=== PATIENT | female | born 1980 | race Asian ===

== ENCOUNTER → 2019-06-20 07:41 | Outpatient (CLI) | payer OTHER, SELFPAY ==
--- NOTE | 2019-06-20 | DI.US.S_ITS ---
PROCEDURE: US PELVIC COMPLETE INDICATIONS: LLQ PAIN, HISTORY OF OVARIAN CYSTS TECHNIQUE: Real-time scanning was performed of the pelvic organs, with image documentation. Additional endovaginal scanning was necessary due to incomplete visualization of the adnexal and endometrial structures by transabdominal scanning. COMPARISON: None. FINDINGS: Transabdominal scanning: Limited scanning through the kidneys shows no hydronephrosis. No pathologic free abdominal or pelvic fluid. Posterior intramural fibroid measuring 9 mm. Posterior subserosal fibroid measuring 17 mm. Endovaginal scanning: Uterus: Uterus is normal in size at 5.3 x 2.1 x 4.1 cm. The endometrium measures 3.0 mm in combined thickness. Ovaries: Ovaries are normal bilaterally. Bilateral follicular cyst present. No adnexal masses. IMPRESSION: 1. 2 fibroids, largest measuring 17 mm. 2. Bilateral follicular cysts. Dictated by: Hussein Montez [facility] Interpreted: Joanne Shannon MD on 06/20/2019 at 10:41 Approved by: Joanne Shannon MD, PhD on 06/20/2019 at 16:19
--- NOTE | 2019-06-20 | DI.US.S_ITS ---
PROCEDURE: US ABDOMEN COMPLETE INDICATIONS: LLQ PAIN, HISTORY OF OVARIAN CYSTS TECHNIQUE: Real-time scanning was performed of the abdominal and retroperitoneal organs, with image documentation. COMPARISON: [facility], US, US PELVIC COMPLETE, 06/20/2019, 8:13. FINDINGS: Liver: Liver is diffusely increased in echogenicity. No focal hepatic abnormalities identified. Normal hepatic size. Gallbladder: No gallstones identified. Normal gallbladder wall. No pericholecystic fluid. Negative sonographic Blue sign. Biliary ducts: Intrahepatic bile ducts are non-dilated. Extrahepatic bile duct caliber measures 2.0 mm. Normal is 6-7 mm or less in diameter, or 10 mm or less post-cholecystectomy. Pancreas: Visualized portions of the pancreas are sonographically normal. Spleen: Spleen is normal in size and homogeneous in echotexture. Kidneys: Kidneys are normal in size and echotexture. Right kidney measures 11.0 cm long; left kidney measures 10.6 cm long. No hydronephrosis or nephrolithiasis. No solid masses. Aorta: Visualized aorta is normal in caliber at less than 3 cm. Iliacs: Proximal common iliac arteries are normal in caliber at less than 2.5 cm. IVC: Intrahepatic inferior vena cava is patent. Miscellaneous: No free abdominal fluid. IMPRESSION: 1. Increased hepatic echogenicity noted possibly related to hepatic steatosis but other sources of hepatocellular disease including hepatic cirrhosis cannot be excluded. Recommend clinical correlation. 2. No source for left lower quadrant pain identified. If pain persists, consider CT. Dictated by: Hussein JIMENES Interpreted: Joanne Shannon MD on 06/20/2019 at 10:53 Approved by: Joanne Shannon MD, PhD on 06/20/2019 at 16:20
== END ==
PROVIDERS: Family Provider Internal Medicine; PCP Internal Medicine; Referring Provider Internal Medicine; Visit Provider Internal Medicine
DX: R10.32 Left lower quadrant pain (principal); D25.1 Intramural leiomyoma of uterus; D25.2 Subserosal leiomyoma of uterus; N83.02 Follicular cyst of left ovary; N83.01 Follicular cyst of right ovary
CPT/HCPCS: 76700; 76830; 76856

== ENCOUNTER → 2019-06-23 11:23 | Outpatient (CLI) | payer OTHER, SELFPAY ==
--- NOTE | 2019-06-23 12:04 | DI.CT.S_ITS ---
PROCEDURE: CT ABDOMEN PELVIS W CON INDICATIONS: Left lower quadrant pain TECHNIQUE: After the administration of oral and intravenous contrast, 5 mm thick sections acquired from the diaphragms to the symphysis. 5 mm thick coronal and sagittal reformats were performed. For radiation dose reduction, the following was used: automated exposure control, adjustment of mA and/or kV according to patient size. COMPARISON: None. FINDINGS: Image quality: Excellent. ABDOMEN: Lung bases: Lung bases are clear. Heart size is normal. Solid organs: Liver is enlarged with steatosis. Gallbladder is unremarkable. Biliary system is non-dilated. Pancreas enhances normally. Spleen is normal in size and enhancement. Splenule is noted. No adrenal nodules. Kidneys are normal in size and enhancement, without hydronephrosis. Peritoneum and bowel: Stomach, small bowel, and colon loops are normal in caliber and wall thickness. No free fluid or air. Colonic diverticula are present without associated inflammatory change. Nodes and vessels: No retroperitoneal or mesenteric adenopathy. Aorta and inferior vena cava are normal in caliber. Miscellaneous: No ventral hernias. PELVIS: Genitourinary: Bladder wall thickness is normal. Miscellaneous: No inguinal hernias or adenopathy. Bones: No suspicious bony lesions. No vertebral body compression fractures. IMPRESSION: 1. Mild diverticulosis. No visualized inflammatory change. 2. Mild hepatomegaly with steatosis. Dictated by: Susan Kc M.D. on 06/23/2019 at 17:45 Approved by: Susan Kc M.D. on 06/23/2019 at 17:47
== END ==
PROVIDERS: Family Provider Internal Medicine; PCP Internal Medicine; Referring Provider Internal Medicine; Visit Provider Internal Medicine
DX: R10.32 Left lower quadrant pain (principal); K57.90 Diverticulosis of intestine, part unspecified, without perforation or abscess without bleeding; K76.0 Fatty (change of) liver, not elsewhere classified
CPT/HCPCS: 74177

== ENCOUNTER → 2021-01-08 15:40 | Outpatient (CLI) | payer OTHER, SELFPAY ==
--- NOTE | 2021-01-08 | DI.MG.S_ITS ---
BILATERAL DIGITAL SCREENING MAMMOGRAM 3D/2D WITH CAD: 01/08/2021 CLINICAL: Routine screening. Baseline. No prior exams were available for comparison. The tissue of both breasts is heterogeneously dense. This may lower the sensitivity of mammography. Current study was also evaluated with a Computer Aided Detection (CAD) system. No significant masses, calcifications, or other findings are seen in either breast. IMPRESSION: NEGATIVE There is no mammographic evidence of malignancy. A 1 year screening mammogram is recommended. This exam was interpreted at Station ID: [id number]. NOTE: For mammograms, a report in lay terms will be sent to the patient. Approximately 15% of breast malignancies will not be visualized mammographically. In the management of a palpable breast mass, a negative mammogram must not discourage biopsy of a clinically suspicious lesion. Electronically Signed By: Kimberly alcaraz/mary:01/08/2021 17:19:52 letter sent: Normal Exam ACR BI-RADS Category 1: Negative 3341F
== END ==
PROVIDERS: Family Provider Internal Medicine; PCP Internal Medicine; Referring Provider Internal Medicine; Visit Provider Internal Medicine
DX: Z12.31 Encounter for screening mammogram for malignant neoplasm of breast (principal)
CPT/HCPCS: 77063; 77067

== ENCOUNTER → 2022-01-09 14:02 | Outpatient (CLI) | payer OTHER, SELFPAY ==
--- NOTE | 2022-01-09 | DI.MG.S_ITS ---
BILATERAL DIGITAL SCREENING MAMMOGRAM 3D/2D WITH CAD: 01/09/2022 CLINICAL: Routine screening. Comparison is made to exam dated: 01/08/2021 mammogram - [facility]. Both breasts are heterogeneously dense, which may obscure small masses (category c / 51-75% glandular tissue). Current study was also evaluated with a Computer Aided Detection (CAD) system. No significant masses, calcifications, or other findings are seen in either breast. There has been no significant interval change. IMPRESSION: NEGATIVE There is no mammographic evidence of malignancy. A 1 year screening mammogram is recommended. Based on the Tyrer Cuzick model (a risk assessment model) the patient's lifetime risk is 14.4% and her 10 year risk is 2.2%. According to the ACR, ACS, and NCCN guidelines, an annual breast MRI exam along with mammogram is recommended if the patient's lifetime risk is 20% or greater. This exam was interpreted at Station ID: [id number]. NOTE: For mammograms, a report in lay terms will be sent to the patient. Approximately 15% of breast malignancies will not be visualized mammographically. In the management of a palpable breast mass, a negative mammogram must not discourage biopsy of a clinically suspicious lesion. Electronically Signed By: hCuck giron/mary:01/12/2022 11:36:53 letter sent: Normal Exam ACR BI-RADS Category 1: Negative 3341F
== END ==
PROVIDERS: Family Provider Internal Medicine; PCP Internal Medicine; Referring Provider Internal Medicine; Visit Provider Internal Medicine
DX: Z12.31 Encounter for screening mammogram for malignant neoplasm of breast (principal)
CPT/HCPCS: 77063; 77067

== ENCOUNTER → 2022-06-10 13:42 | Outpatient (CLI) | payer OTHER, SELFPAY ==
--- NOTE | 2022-06-15 16:49 | DIET.CONS ---
Dietary Consultation Note Consult Date: 06/10/22 41 y/o F referred to RD for pre-diabetes and hyperlipidemia.? Pt is struggling with how to navigate diet with multiple comorbidities. A1c: 6.3 (H, pre-diabetic)? FB (WNL) LDL: 148 (H) Cholesterol: 219 (H) BMI: 26 Wt: 158 lbs / 70.9 kg Mother has high cholesterol and father has adult-onset diabetes. PA: Has been trying to do more exercise, which has not helped wt. 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 Injured knee yrs ago. Exercises 4-5x/week using rowing machine (24 min moderate) and/or bicycle (40-45 min), core and squats. Cannot run or walk for too long due to knee injury. Wt hx: wt increased after quitting active job.? Diet recall:? Wake: 9am B: veggie omelet or soft-boiled eggs (2 eggs), whole wheat sourdough with butter and jam, and hash brown OR steal cut oatmeal OR grits (cream, no cheese) with saut? veggies (onion, zucchini, tomato). Black tea unsweetened. No longer drinks coffee daily.? S: no snack since increasing breakfast meal size. L: leftover OR sheela sandwich D: (6-7pm) canned ravi soup and steamed artichoke OR spaghetti and meatballs OR stir alas with rice. S: fruit (orange or pear)? ETOH: 1/2 glass of hard cider OR 1/2 glass wine OR 1/2 cocktail.? For cholesterol, pt avoids foods that ?mess with BS.?? Pt reports blueberries and popsicle causing jitters and a crash.? Diagnosis: altered nutrition related laboratory values (A1c, LDL, cholesterol) r/t food and nutrition related knowledge deficit and genetics aeb A1c 6.3% (pre-diabetic), LDL 148 (H), cholesterol 219 (H), diet recall revealing high CHO intake not consistent with carb consistent diet/high fiber diet, family history of diabetes and hyperlipidemia.? Intervention:? 1. Educated pt on pre-diabetes/diabetes and how it impacts our bodies using food examples and diagram.? 2. Discussed how exercise and consistent intake of CHO can balance BG levels throughout day. Recc 10 minute low intensity exercise after eating. 3. Educated pt on carb counting and label reading. Recc 30-45 g CHO (2-3 CHO choices) at meals and 15 g CHO (1 CHO choice) at snacks. Collaborated on meal and snack ideas.? 4. Discussed the benefits of fiber on BG and cholesterol levels. Collaborated on ways to increase fiber in diet using fiber handout. Recc 25 g fiber/day.? 5. For jitters and crashing after sugar intake, recc combing sugar with protein to slow BS spike. Electronically Signed by: Jody Bingham 06/10/22 16:49 Clinical Dietitian [address] [address]
== END ==
PROVIDERS: Absent Provider Internal Medicine; Family Provider Internal Medicine; PCP Internal Medicine; Referring Provider Internal Medicine; Visit Provider Internal Medicine
DX: R73.03 Prediabetes (principal); Z83.3 Family history of diabetes mellitus; Z71.3 Dietary counseling and surveillance; Z68.26 Body mass index [BMI] 26.0-26.9, adult; E78.5 Hyperlipidemia, unspecified
CPT/HCPCS: 97802

== ENCOUNTER → 2022-07-16 13:48 | Outpatient (CLI) | payer OTHER, SELFPAY ==
--- NOTE | 2022-07-16 15:06 | DIET.OUTPTC ---
Dietary Outpatient Consultation Note Consultation Date: 07/16/2022 41 y/o F presenting for f/u appointment with pre-diabetes (A1c 6.3%) and cholesterol. Pt has noticed pants fitting better. Has been trying to stick with CHO guidelines. Tends to hover around 45g at meals. If she sticks at 30g she notices that she is more hungry. Would like to stick to 45g CHO for satiety reasons.? Pt reports fiber being a little more challenging. Has been eating beans and vegetables but has been getting tired of the beans.? Pt had questions regarding fiber content of food; steaming vegetables vs roasting/raw, fruit in smoothies vs whole, seaweed, nuts and seeds. 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 BMI 26 A1c: 6.3 LDL: 148 Total Cholesterol: 219 Interventions: 1. Educated pt on net CHOs (total carb - fiber). 2. Suggested a supplemental fiber if fiber continues to be challenging.? 3. Answered pts question regarding fiber. 4. Discussed how to work through diet challenges during the holidays.? Follow-up: recommend scheduling a follow-up once A1c labs come back or when needed.? Electronically Signed by: Jody Bingham 07/16/22 15:06 Clinical Dietitian [address] [address]
== END ==
PROVIDERS: Family Provider Internal Medicine; PCP Internal Medicine; Referring Provider Internal Medicine; Visit Provider Internal Medicine
DX: R73.03 Prediabetes (principal); Z71.3 Dietary counseling and surveillance
CPT/HCPCS: 97803

== ENCOUNTER → 2023-05-03 11:26 | Outpatient (CLI) | payer OTHER, SELFPAY ==
--- NOTE | 2023-05-03 11:28 | DI.MG.S_ITS ---
BILATERAL DIGITAL SCREENING MAMMOGRAM 3D/2D WITH CAD: 05/03/2023 CLINICAL: Routine screening. Comparison is made to exams dated: 01/09/2022 mammogram and 01/08/2021 mammogram - [facility]. Both breasts are heterogeneously dense, which may obscure small masses (category c / 51-75% glandular tissue). Current study was also evaluated with a Computer Aided Detection (CAD) system. No significant masses, calcifications, or other findings are seen in either breast. There has been no significant interval change. IMPRESSION: NEGATIVE There is no mammographic evidence of malignancy. A 1 year screening mammogram is recommended. Based on the Tyrer Cuzick model (a risk assessment model) the patient's lifetime risk is 14.4% and her 10 year risk is 2.3%. According to the ACR, ACS, and NCCN guidelines, an annual breast MRI exam along with mammogram is recommended if the patient's lifetime risk is 20% or greater. This exam was interpreted at Station ID: [id number]. NOTE: For mammograms, a report in lay terms will be sent to the patient. Approximately 15% of breast malignancies will not be visualized mammographically. In the management of a palpable breast mass, a negative mammogram must not discourage biopsy of a clinically suspicious lesion. Electronically Signed By: Kimberly alcaraz/mary:05/03/2023 15:34:56 letter sent: Normal Exam ACR BI-RADS Category 1: Negative 3341F
== END ==
PROVIDERS: Family Provider Internal Medicine; PCP Internal Medicine; Referring Provider Internal Medicine; Visit Provider Internal Medicine
DX: Z12.31 Encounter for screening mammogram for malignant neoplasm of breast (principal); R92.333 Mammographic heterogeneous density, bilateral breasts
CPT/HCPCS: 77063; 77067

== ENCOUNTER → 2023-08-31 09:33 | Outpatient (CLI) | payer OTHER, SELFPAY ==
--- NOTE | 2023-08-31 09:35 | DI.CT.S_ITS ---
PROCEDURE: CT ABDOMEN PELVIS W CON INDICATIONS: LLQ PAIN / UTERINE LEIOMYOMA / BOWEL HABIT CHANGE TECHNIQUE: After the administration of intravenous contrast, axial sections acquired from the lung bases to the pubic symphysis. Coronal and sagittal reformats were performed. For radiation dose reduction, the following was used: automated exposure control, adjustment of mA and/or kV according to patient size. COMPARISON: [facility], CT, CT ABDOMEN PELVIS W CON, 06/23/2019, 13:20. FINDINGS: Image quality: Diagnostic. Lower Chest: No significant findings. ABDOMEN: Liver: Mild hepatomegaly and mild hepatic steatosis. No solid enhancing mass. Gallbladder: No wall thickening or calcified stones. Biliary ducts: No biliary dilation. Pancreas: Normal. Spleen: Normal size. Adrenal Glands: No adrenal nodules. Kidneys and Ureters: Symmetric enhancement. No nephrolithiasis or hydronephrosis. No hydroureter. Stomach and Bowel: Stomach and small bowel loops are normal caliber. Normal appendix. Normal colon. No significant diverticular disease or suspicious colon wall thickening. Peritoneum: No abnormal intraperitoneal fluid. No free air. Ventral Wall: No significant ventral hernia. Abdominal Nodes: Mildly prominent right lower quadrant mesenteric lymph nodes. No other significant mesenteric or retroperitoneal adenopathy. Vessels: The abdominal aorta, IVC, and portal vein are of normal caliber. PELVIS: Pelvic Organs: Normal size, anteverted uterus. There is a small enhancing 1.2 cm indistinct focus within the endometrial cavity. There are a few subserosal lobulations along the posterior wall, probably uterine fibroids. Normal CT appearance of the left ovary. There is a peripherally vascular corpus luteum cyst in the right ovary. No suspicious adnexal masses. Bladder: No bladder wall thickening, accounting for underdistention. Pelvic Nodes: No enlarged lymph nodes. Miscellaneous: No inguinal hernias are seen. Bones: No aggressive osseous abnormality. Severe degenerative disc height loss L5-S1. IMPRESSION: Fibroid uterus with an indistinct enhancing focus in the endometrium. This is nonspecific. Further evaluation with pelvic ultrasound is recommended. Mild hepatic steatosis. Slightly prominent mesenteric lymph nodes in the right lower quadrant are presumably physiologic. Dictated by: Kimberly Becerril M.D. on 08/31/2023 at 13:32 Approved by: Kimberly Becerril M.D. on 08/31/2023 at 13:39
== END ==
LOC: CT 09:34
PROVIDERS: Family Provider Internal Medicine; PCP Internal Medicine; Referring Provider Internal Medicine; Visit Provider Internal Medicine
DX: D25.9 Leiomyoma of uterus, unspecified (principal); K76.0 Fatty (change of) liver, not elsewhere classified; R10.32 Left lower quadrant pain; R19.4 Change in bowel habit
CPT/HCPCS: 74177; Q9967

== ENCOUNTER → 2024-06-02 11:02 | Outpatient (CLI) | payer OTHER, SELFPAY ==
--- NOTE | 2024-06-02 | DI.MG.S_ITS ---
BILATERAL DIGITAL SCREENING MAMMOGRAM 3D/2D WITH CAD: 06/02/2024 CLINICAL: Routine screening. Comparison is made to exams dated: 05/03/2023 mammogram, 01/09/2022 mammogram, and 01/08/2021 mammogram - [facility]. The breasts are heterogeneously dense, which may obscure small masses (category c / 51-75% glandular tissue). Current study was also evaluated with a Computer Aided Detection (CAD) system. No significant masses, calcifications, or other findings are seen in either breast. There has been no significant interval change. IMPRESSION: NEGATIVE There is no mammographic evidence of malignancy. A 1 year screening mammogram is recommended. Based on the Tyrer Cuzick model (a risk assessment model) the patient's lifetime risk is 14.3% and her 10 year risk is 2.5%. According to the ACR, ACS, and NCCN guidelines, an annual breast MRI exam along with mammogram is recommended if the patient's lifetime risk is 20% or greater. This exam was interpreted at Station ID: [id number]. NOTE: For mammograms, a report in lay terms will be sent to the patient. Approximately 15% of breast malignancies will not be visualized mammographically. In the management of a palpable breast mass, a negative mammogram must not discourage biopsy of a clinically suspicious lesion. Electronically Signed By: Jono brady/mary:06/03/2024 14:45:27 letter sent: Normal Exam ACR BI-RADS Category 1: Negative
== END ==
LOC: MAMMO 11:03
PROVIDERS: Family Provider Internal Medicine; PCP Family Medicine; Referring Provider Family Medicine; Visit Provider Family Medicine
DX: Z12.31 Encounter for screening mammogram for malignant neoplasm of breast (principal); R92.333 Mammographic heterogeneous density, bilateral breasts
CPT/HCPCS: 77063; 77067